=== PATIENT | female | born 1935 | race Two or more races ===

== ENCOUNTER 2021-11-01 07:01 | Outpatient (CLI) | payer OTHER | END 2021-11-01 07:10 | disposition home or self-care (01) | LOC: RAD 07:01 | PROVIDERS: ATTEND Student in an Organized Health Care Education/Training Program | DX: M51.36 Other intervertebral disc degeneration, lumbar region (principal); M54.16 Radiculopathy, lumbar region ==

== ENCOUNTER 2021-12-12 13:43 | Outpatient (CLI) | payer OTHER | END 2021-12-12 13:53 | disposition home or self-care (01) | LOC: RAD 13:43 | PROVIDERS: ATTEND Student in an Organized Health Care Education/Training Program | DX: Z01.818 Encounter for other preprocedural examination (principal); M54.59 Other low back pain ==

== ENCOUNTER 2021-12-31 07:10 | Outpatient (CLI) | payer OTHER | END 2021-12-31 07:12 | disposition home or self-care (01) | LOC: RAD 07:10 | PROVIDERS: ATTEND Student in an Organized Health Care Education/Training Program | DX: M54.16 Radiculopathy, lumbar region (principal) ==

== ENCOUNTER 2022-03-28 06:24 | Outpatient (CLI) | payer OTHER | END 2022-03-28 06:33 | disposition home or self-care (01) | LOC: RAD 06:24 | PROVIDERS: ATTEND Student in an Organized Health Care Education/Training Program | DX: Z98.1 Arthrodesis status (principal); M51.36 Other intervertebral disc degeneration, lumbar region; M54.50 Low back pain, unspecified ==

== ENCOUNTER 2022-05-17 07:10 | Outpatient (CLI) | payer OTHER | END 2022-05-17 07:19 | disposition home or self-care (01) | LOC: RAD 07:10 | PROVIDERS: ATTEND Internal Medicine Pulmonary Disease | DX: J45.901 Unspecified asthma with (acute) exacerbation (principal) ==

== ENCOUNTER 2022-10-22 07:02 | Outpatient (CLI) | payer OTHER | END 2022-10-22 07:09 | disposition home or self-care (01) | LOC: RAD 07:02 | PROVIDERS: ATTEND Internal Medicine | DX: M54.51 Vertebrogenic low back pain (principal) ==

== ENCOUNTER 2023-05-06 07:33 | Outpatient (CLI) | payer OTHER | END 2023-05-06 07:46 | disposition home or self-care (01) | LOC: TOM 07:33 | DX: M47.27 Other spondylosis with radiculopathy, lumbosacral region (principal) ==

== ENCOUNTER 2023-12-18 07:03 | Outpatient (CLI) | payer OTHER | END 2023-12-18 07:09 | disposition home or self-care (01) | LOC: MRI 07:03 | PROVIDERS: ATTEND Physical Medicine & Rehabilitation | DX: M54.50 Low back pain, unspecified (principal) | CPT/HCPCS: 72148 ==

== ENCOUNTER 2024-03-26 07:42 | Outpatient (CLI) | payer OTHER | END 2024-03-26 07:47 | disposition home or self-care (01) | LOC: RAD 07:42 | PROVIDERS: ATTEND Student in an Organized Health Care Education/Training Program | DX: Z98.1 Arthrodesis status (principal) ==

== ENCOUNTER 2024-06-03 07:11 | Outpatient (CLI) | payer OTHER | END 2024-06-03 07:23 | disposition home or self-care (01) | LOC: RAD 07:11 | PROVIDERS: ATTEND Student in an Organized Health Care Education/Training Program | DX: M54.16 Radiculopathy, lumbar region (principal); Z98.1 Arthrodesis status ==